=== PATIENT | female | born 1980 | race Caucasian/White ===

== ENCOUNTER → 2018-07-01 15:06 | Outpatient (CLI) | payer OTHER ==
[2018-07-01 15:46] LABS: T4 THYROXINE 8.3 ug/dL (4.7-13.3); THYROID STIMULATING HORMONE 0.51 uIU/mL (0.36-3.74)
== END | disposition home or self-care (01) ==
LOC: D.LABREF 15:06
PROVIDERS: Internal Medicine Cardiovascular Disease
DX: R00.2 Palpitations (principal)